=== PATIENT | female | born 1950 | race Caucasian/White ===

== ENCOUNTER 2016-07-15 11:09 | Emergency (ER) | payer MEDICARE, BC ==
[2016-07-15 11:15] VITALS: BP 161/79
--- NOTE | 2016-07-15 11:57 | UC ---
Skin Complaint HPI - HPI Summary HPI Summary: a medical provider at her gym noted a rash above her bra line on the right side of her back this morning---they told her it was a Bulls eye rash - History of Current Complaint Chief Complaint: UCSkin Time Seen by Provider: 07/15/16 11:48 Stated Complaint: RASH Hx Obtained From: Patient ?: No Onset/Duration: Sudden Onset, Still Present Timing: Constant Current Severity: None - no discomfort, no known Tick bite Location: Discrete Character: Redness Aggravating: Nothing Alleviating: Nothing Associated Signs & Symptoms: Positive: Negative - Allergy/Home Medications Allergies/Adverse Reactions: Allergies Allergy/AdvReac Type Severity Reaction Status Date / Time No Known Allergies Allergy Verified 07/15/16 11:14 Review of Systems Constitutional: Negative Skin: Other - erythema above bra on right side of back Eyes: Negative ENT: Negative Respiratory: Negative Cardiovascular: Negative Gastrointestinal: Negative Genitourinary: Negative Motor: Negative Neurovascular: Negative Musculoskeletal: Negative Neurological: Negative Psychological: Negative All Other Systems Reviewed And Are Negative: Yes PMH/Surg Hx/FS Hx/Imm Hx Previously Healthy: Yes - Surgical History Surgical History: Yes Surgery Procedure, Year, and Place: HYSTERECTOMY, - Family History Known Family History: Positive: None Family History: no reported cardio vascular issues in family lineage - Social History Occupation: Retired Lives: With Family Alcohol Use: Weekly Substance Use Type: None Smoking Status (MU): Never Smoked Tobacco - Immunization History Most Recent Tetanus Shot: UNSURE Physical Exam Triage Information Reviewed: Yes Appearance: Well-Appearing, No Pain Distress, Well-Nourished Vital Signs: Initial Vital Signs Temp 99.0 F 07/15/16 11:11 Pulse 85 07/15/16 11:11 Resp 16 07/15/16 11:11 BP 161/79 07/15/16 11:11 Pulse Ox 100 07/15/16 11:11 Vital Signs Reviewed: Yes Eye Exam: Normal Eyes: Positive: Conjunctiva Clear ENT Exam: Normal ENT: Positive: Normal ENT inspection, Hearing grossly normal, TMs normal. Negative: Nasal congestion, Nasal drainage, Tonsillar swelling, Tonsillar exudate, Trismus, Muffled/hoarse voice Dental Exam: Normal Neck exam: Normal Neck: Positive: Supple, Nontender, No Lymphadenopathy Respiratory Exam: Normal Respiratory: Positive: Chest non-tender, Lungs clear, Normal breath sounds, No respiratory distress, No accessory muscle use Cardiovascular Exam: Normal Cardiovascular: Positive: RRR, No Murmur, Pulses Normal, Brisk Capillary Refill Musculoskeletal Exam: Normal Musculoskeletal: Positive: Strength Intact, ROM Intact, No Edema Neurological Exam: Normal Psychological Exam: Normal Skin Exam: Other Skin: Positive: rashes - 6x3 cm erythemic area right side of back- Course/Dx - Course Course Of Treatment: Lyme titer, start Doxycycline, elevated blood pressure, follow both with pcp in 1 week - Differential Diagnoses - Skin Complaint Differential Diagnoses: Cellulitis, Impetigo, Local Allergic Reaction, Tick Born Illness - Diagnoses Provider Diagnoses: High blood pressure without dx of hypertension, erythema migranes Discharge - Discharge Plan Condition: Stable Disposition: HOME Prescriptions: DOXYcycline CAP(*) [DOXYcycline 100MG CAP(*)] 100 mg PO BID #[id number] Patient Education Materials: Doxycycline (By mouth), Lyme Disease (ED), DASH Eating Plan (ED), Hypertension (ED) Referrals: Cherry Ross MD [Primary Care Provider] - 2 Weeks
== END 2016-07-15 12:10 | disposition home or self-care (01) ==
LOC: UCEAST 11:09
DX: A26.0 Cutaneous erysipeloid (principal); R03.0 Elevated blood-pressure reading, without diagnosis of hypertension; Z90.710 Acquired absence of both cervix and uterus
CPT/HCPCS: 86618; 99211; G0463